=== PATIENT | female | born 1985 | race Caucasian/White ===

== ENCOUNTER 2017-04-15 23:28 | Emergency (ER) | payer OTHER ==
[~2017-04-15] VITALS: Ht 165.1 cm; Wt 72.3 kg
[~2017-04-15 23:28] MED LIST: ALBU8.5H2 INHALATION; MULT-1080 PO; OXYC-474 PO; POLY17PO6 PO
[2017-04-15 23:32] VITALS: BP 139/93; PULSE 75; RESP 18; O2SAT 100
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
[2017-04-15] MEDS ORDERED: Buprenorphine 2 mg SL Tablet SL ONE (23:45)
[2017-04-15] MEDS ORDERED: LORazepam 1 mg Tablet PO ONE (23:45)
[2017-04-16] MEDS ORDERED: BUPR1FIL3 SL (01:01)
[2017-04-16 01:47] VITALS: BP 116/78; PULSE 60; O2SAT 97
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
== END 2017-04-16 01:51 | disposition home or self-care (01) ==
LOC: SED 23:30
DX: S02.2XXA Fracture of nasal bones, initial encounter for closed fracture (principal); S70.01XA Contusion of right hip, initial encounter; T76.11XA Adult physical abuse, suspected, initial encounter; Y04.8XXA Assault by other bodily force, initial encounter; Y92.9 Unspecified place or not applicable; Y93.89 Activity, other specified; Y99.8 Other external cause status; F11.21 Opioid dependence, in remission; E78.5 Hyperlipidemia, unspecified; Z88.0 Allergy status to penicillin
CPT/HCPCS: 70160; 96372; 99284; J1885